=== PATIENT | male | born 1990 | race Caucasian/White ===

== ENCOUNTER 2017-01-08 16:18 | Emergency (ER) | payer OTHER ==
[2017-01-08 17:56] VITALS: BP 144/70
--- NOTE | 2017-01-08 19:03 | UC ---
FLU HPI - HPI Summary HPI Summary: Pt c/o gradual onset of cough, malaise, sore throat, bilateral ear pain, chills X 4 days. - History of Current Complaint Chief Complaint: UCGeneralIllness Stated Complaint: COUGH,ST,SHAKA Time Seen by Provider: 01/08/17 18:34 Hx Obtained From: Patient Onset/Duration: Gradual Onset, Lasting Days, Worse Since - onset Severity Currently: Moderate Severity Initially: Mild Associated Signs & Symptoms: Positive: Myalgia, Cough, Sore Throat, Nasal Congestion Related Hx: Possible Flu/Infectious Exposure - Allergy/Home Medications Allergies/Adverse Reactions: Allergies Allergy/AdvReac Type Severity Reaction Status Date / Time Codeine AdvReac Vomiting Verified 01/08/17 17:55 Home Medications: Home Medications Acetaminophen [Acetaminophen Extra Stren] 1,500 mg PO 01/08/17 [History] Diphenhydramine HCl (Sleep) [Zzzquil] 25 mg PO BEDTIME PRN 01/08/17 [History Confirmed 01/08/17] Ibuprofen TAB* [Advil TAB*] 800 mg PO Q6H PRN 01/08/17 [History Confirmed ] PMH/Surg Hx/FS Hx/Imm Hx Previously Healthy: Yes - Surgical History Surgical History: Yes Surgery Procedure, Year, and Place: Appendectomy, 2009 - Family History Known Family History: Positive: Cardiac Disease - Social History Occupation: Employed Full-time Lives: With Family Alcohol Use: Rare Substance Use Type: None Smoking Status (MU): Former Smoker Type: eCigarettes Have You Smoked in the Last Year: No When Did the Patient Quit Smoking/Using Tobacco: 3 YRS AGO - Immunization History Most Recent Tetanus Shot: Unsure Review of Systems Constitutional: Chills, Fatigue Skin: Negative Eyes: Negative ENT: Sore Throat, Ear Ache, Sinus Congestion Respiratory: Cough Cardiovascular: Negative Gastrointestinal: Negative Genitourinary: Negative Motor: Negative Neurovascular: Negative Musculoskeletal: Negative Neurological: Headache Psychological: Negative Is Patient Immunocompromised?: No All Other Systems Reviewed And Are Negative: Yes Physical Exam Triage Information Reviewed: Yes Appearance: Ill-Appearing Vital Signs: Initial Vital Signs Temp 98.2 F 01/08/17 17:49 Pulse 75 01/08/17 17:49 Resp 12 01/08/17 17:49 BP 144/70 01/08/17 17:49 Pulse Ox 99 11/12/17 17:49 Vital Signs Reviewed: Yes Eye Exam: Normal ENT Exam: Other ENT: Positive: Nasal congestion, TM bulging, TM red - right TM Dental Exam: Normal Neck exam: Normal Respiratory Exam: Normal Cardiovascular Exam: Normal Musculoskeletal Exam: Normal Neurological Exam: Normal Psychological Exam: Normal Skin Exam: Normal Flu Course/Dx - Differential Dx/Diagnosis Differential Diagnosis/HQI/PQRI: Bronchitis, Influenza, Pneumonia Provider Diagnoses: Otitis Media right TM. cough Discharge - Discharge Plan Condition: Stable Disposition: HOME Prescriptions: Amoxicillin PO (*) [Amoxicillin 875 MG (*)] 875 mg PO Q12H #20 tab Patient Education Materials: Otitis Media (ED), Acute Cough (ED) Referrals: No Primary Care Phys,NOPCP [Primary Care Provider] - If Needed
[2017-01-08] MEDS ORDERED: Amoxicillin PO (*) 500 MG CAP PO ONE (19:17)
[2017-01-08] MEDS ORDERED: Benzonatate CAP* 100 MG PO ONE (19:18)
== END 2017-01-08 19:29 | disposition home or self-care (01) ==
LOC: UCCORT 16:18
DX: H66.91 Otitis media, unspecified, right ear (principal); R05 Cough; Z90.89 Acquired absence of other organs; Z88.5 Allergy status to narcotic agent; Z87.891 Personal history of nicotine dependence
CPT/HCPCS: 87502; 99212; A9270-GY; G0463

== ENCOUNTER 2017-08-26 18:39 | Emergency (ER) | payer OTHER ==
[2017-08-26 19:38] VITALS: BP 117/56
--- NOTE | 2017-08-26 19:56 | UC ---
General HPI - HPI Summary HPI Summary: Patient states that on Monday he had a sore throat is then followed by head congestion and runny nose he's evolved into sinus pain causing discomfort into his upper teeth and left ear pain. He is blowing yellowish green drainage from his nose. He denies any fever or chills notes that the sore throat is just postnasal drip and offers no other complaints. States that he had something similar once before and it was an ear infection. He denies any allergies signs or symptoms such as itchy watery eyes or sneezing. - History of Current Complaint Chief Complaint: UCEar Stated Complaint: HEAD COLD/EAR COMPLAINT Time Seen by Provider: 08/26/17 19:50 Hx Obtained From: Patient Onset/Duration: Gradual Onset Timing: Constant Pain Intensity: 3 Associated Signs & Symptoms: Positive: Cough, Headache - Allergy/Home Medications Allergies/Adverse Reactions: Allergies Allergy/AdvReac Type Severity Reaction Status Date / Time codeine Allergy Vomiting Verified 08/26/17 18:47 bee sting Allergy Coughing Uncoded 08/26/17 19:40 Home Medications: Home Medications Acetaminophen [Acetaminophen Extra Strength] 1,000 mg PO DAILY PRN 08/26/17 [ History Confirmed 08/26/17] Epi-Pen 1 dose IM SEE INSTRUCTIONS 08/26/17 [History Confirmed 08/26/17] PMH/Surg Hx/FS Hx/Imm Hx - Additional Past Medical History Additional PMH: OM - Surgical History Surgical History: Yes Surgery Procedure, Year, and Place: Appendectomy, 2010 - Family History Known Family History: Positive: Cardiac Disease - Social History Occupation: Employed Full-time Lives: With Family Alcohol Use: Rare Substance Use Type: None Smoking Status (MU): Never Smoked Tobacco Type: eCigarettes Have You Smoked in the Last Year: No When Did the Patient Quit Smoking/Using Tobacco: 3 YRS AGO - Immunization History Most Recent Tetanus Shot: Unsure Vaccination Up to Date: Yes Review of Systems ENT: Sore Throat, Ear Ache - L, Nasal Discharge, Sinus Congestion, Sinus Pain/ Tenderness Neurological: Headache Is Patient Immunocompromised?: No All Other Systems Reviewed And Are Negative: Yes Physical Exam Triage Information Reviewed: Yes Appearance: Well-Appearing Vital Signs: Initial Vital Signs Temp 98.9 F 08/26/17 19:32 Pulse 82 08/26/17 19:32 Resp 12 08/26/17 19:32 BP 117/56 08/26/17 19:32 Pulse Ox 98 08/26/17 19:32 Vital Signs Reviewed: Yes Eyes: Positive: Conjunctiva Clear ENT: Positive: Pharynx normal, Nasal congestion, TMs normal, Sinus tenderness. Negative: Nasal drainage Neck: Positive: Supple, Nontender, No Lymphadenopathy Respiratory: Positive: Lungs clear, Normal breath sounds Cardiovascular: Positive: RRR, No Murmur Abdomen Description: Positive: Nontender, No Organomegaly, Soft Bowel Sounds: Positive: Present Musculoskeletal: Positive: ROM Intact Neurological: Positive: Alert Psychological: Positive: Age Appropriate Behavior Skin Exam: Normal Course/Dx - Course Course Of Treatment: Patient is nontoxic. He has no evidence of ear infection on exam. He is blowing yellow-green mucus from his nose. He also has some sinus tenderness; however, this duration of illness is only 4 days. I'm going to have him start treatment with an [id number] decongestant Sudafed was advised along with nasal steroid spray. If he is not improving over the next 2- 3 days with this treatment or if he becomes worse at any time I have sent and a prescription for Augmentin which he may fill and start along with the decongestant and nasal steroid spray. - Differential Dx - Multi-Symptom Provider Diagnoses: SINUSITIS Discharge - Sign-Out/Discharge Documenting (check all that apply): Discharge/Admit/Transfer - Discharge Plan Condition: Stable Disposition: HOME Prescriptions: Amoxicillin/Clavulanate TAB* [Augmentin TAB 875*] 875 mg PO BID 10 Days #20 tab Patient Education Materials: Sinusitis (ED) Referrals: Luis Gordon DO [Primary Care Provider] - 7 Days Additional Instructions: START OVER THE COUNTER DECONGESTANT PER LABEL AND FLONASE NASAL SPRAY PER LABEL. IF NOT IMPROVING WITHIN 2-3 DAYS OR IF ANY WORSENING, START THE ANTIBIOTIC WELL. - Billing Disposition and Condition Condition: STABLE Disposition: Home
== END 2017-08-26 20:12 | disposition home or self-care (01) ==
LOC: UCCORT 18:39
DX: J32.9 Chronic sinusitis, unspecified (principal); Z87.891 Personal history of nicotine dependence; Z88.5 Allergy status to narcotic agent
CPT/HCPCS: 99212; G0463